=== PATIENT | female | born 1980 | race African-American/Black ===

== ENCOUNTER 2022-02-17 11:25 | Emergency (ER) | payer OTHER ==
[~2022-02-17] VITALS: Ht 175.3 cm; Wt 195.0 kg
[2022-02-17 12:03] VITALS: BP 117/81
== END 2022-02-17 12:48 | disposition home or self-care (01) ==
LOC: ER 11:28
DX: U07.1 COVID-19 (principal); B34.9 Viral infection, unspecified; Z88.0 Allergy status to penicillin
CPT/HCPCS: 36415; 87426; 87804

== ENCOUNTER 2023-09-28 01:09 | Emergency (ER) | payer OTHER ==
[~2023-09-28] VITALS: Ht 175.3 cm; Wt 190.0 kg
[2023-09-28 01:37] LABS: Basophils # (auto) 0 10 ^3/uL (0-0.2); Basophils % (auto) 0.2 % (0.0-2.0); Eosinophils # (auto) 0.1 10 ^3/uL (0-0.8); Eosinophils % (auto) 0.7 % (0.0-7.0); Hematocrit 36.3 % (36.0-46.0); Hemoglobin 11.9 g/dL (12.2-16.2); Lymphocytes % (auto) 26.6 % (10.0-50.0); Mean Corpuscular Hemoglobin 27.9 pg (28.0-32.0); Mean Corpuscular Hgb Conc. 32.7 g/dL (32.0-36.0); Mean Corpuscular Volume 85.5 fL (80.0-100.0); Monocytes # (auto) 0.3 10 ^3/uL (0-1.3); Neutrophils # (auto) 5.1 10 ^3/uL (1.6-8.6); Neutrophils % (auto) 68.5 % (37.0-80.0); Red Blood Cells 4.24 10^6/uL (4.0-5.20); Red Cell Distribution Width 15.2 % (11.8-14.3); White Blood Cell 7.4 10^3/uL (4.4-10.8)
[2023-09-28 01:38] VITALS: TEMP 98.7
[2023-09-28] MEDS: KETOROLAC TROMETH 60MG/2ML VIAL IM ONE (01:44)
[2023-09-28 01:56] LABS: Alanine Aminotransferase 15 U/L (7-40); Alkaline Phosphatase 75 U/L (46-116); Anion Gap 7 (5-15); BUN/Creatinine Ratio 15.7 (10.0-20.0); Blood Urea Nitrogen 13 mg/dL (9-23); Calcium 9.1 mg/dL (8.7-10.4); Carbon Dioxide 25 mmol/L (20-30); Chloride 106 mmol/L (98-107); Glucose 127 mg/dL (74-106); Potassium 3.9 mmol/L (3.5-5.1); Sodium 138 mmol/L (136-145)
[2023-09-28 01:57] LABS: Aspartate Aminotransferase < 8 U/L (13-40); Bilirubin, Total 0.4 mg/dL (0.2-1.0); Total Protein 7.4 g/dL (5.7-8.2)
[2023-09-28 01:58] VITALS: PULSE 72; RESP 25; O2SAT 98
[2023-09-28 04:00] VITALS: BP 113/75; PULSE 89; RESP 17; O2SAT 96
[2023-09-28 04:14] LABS: Urine Blood 3+ /uL (Negative); Urine Clarity Turbid (Clear); Urine Color Light-Brown (Yellow); Urine Protein, UAD TRACE (Negative); Urine Urobilinogen Normal (Negative)
[2023-09-28] MEDS ORDERED: NAP500T GT (04:51)
== END 2023-09-28 05:02 | disposition home or self-care (01) ==
LOC: ER 01:09 → EDBD 01:09 → EDUNIT# 01:09 → ER 05:02
DX: R11.2 Nausea with vomiting, unspecified (principal); N92.0 Excessive and frequent menstruation with regular cycle; N94.6 Dysmenorrhea, unspecified; Z88.0 Allergy status to penicillin
CPT/HCPCS: 36415; 76856; 80053; 81003; 82962; 85025; 96372; 99285; J1885

== ENCOUNTER 2024-09-04 05:59 | Emergency (ER) | payer SELFPAY ==
[~2024-09-04] VITALS: Ht 175.3 cm; Wt 150.0 kg
[~2024-09-04 05:59] MED LIST: NAP500T GT
--- NOTE | 2024-09-04 07:01 | ED.PDOC ---
GI ASSESSMENT HPI Comments A 43 year-old female, with a PMHX of Gallbladder Disease, presents to the ED via EMS with a chief complaint of epigastric abdominal pain with associated nausea after eating steak at 0000 today. Patient has no further complaints at this time and otherwise denies emesis, dysuria, hematuria, fever, chills, or aches. Chief Complaint: Abdominal Pain Time Seen by MD: 06:45 Reviewed Notes: Nurses Notes, Medications, Allergies Allergies: Coded Allergies: Penicillins (Verified Allergy, Severe, RASH, 02/17/22) Home Meds Active Scripts Naproxen (NAPROSYN TABLET) 500 Mg Tb, 500 MG GT BID for 10 Days, #20 TAB Prov:KENIA DAVID MD 09/28/23 Information Source: Patient Mode of Arrival: EMS Duration: Since onset Severity: Moderate Pain Location: Epigastric Associated sign and symptoms: Nausea, Abdominal Pain Past Medical History Past Medical History (Other): Gallbladder Disease Surgical History: Denies all surgeries COMBAT ENGINEER History: No Pertinent COMBAT ENGINEER History Family History Family History: Reviewed,noncontributory to illness Social History Smoker: Non-Smoker Alcohol: Denies ETOH Use Drugs: Denies Drug Use Lives In: Home Constitutional: denies: chills, diaphoresis, fatigue, fever, malaise, sweats, weakness, others EENTM: denies: blurred vision, double vision, ear bleeding, ear discharge, ear drainage, ear pain, ear ringing, eye pain, eye redness, hearing loss, mouth pain, mouth swelling, nasal discharge, nose bleeding, nose congestion, nose pain, photophobia, tearing, throat pain, throat swelling, voice changes, others Respiratory: denies: cough, hemoptysis, orthopnea, SOB at rest, shortness of breath, SOB with excertion, stridor, wheezing, others Cardiovascular: denies: chest pain, dizzy spells, diaphoresis, Dyspnea on exertion, edema, irregular heart beat, left arm pain, lightheadedness, palpitations, PND, syncope, others Gastrointestinal: reports: abdominal pain, nausea; denies: abdomen distended, blood streaked bowels, constipated, diarrhea, dysphagia, difficulty swallowing, hematemesis, melena, poor appetite, poor fluid intake, rectal bleeding, rectal pain, vomiting, others Genitourinary: denies: abnormal vagina bleeding, burning, dyspareunia, dysuria, flank pain, frequency, hematuria, incontinence, pain, , vagina discharge, urgency, others Neurological: denies: dizziness, fainting, headache, left sided numbness, left sided weakness, numbness, paresthesia, pre-existing deficit, right sided numbness, right sided weakness, seizure, speech problems, tingling, tremors, weakness, others Musculoskeletal: denies: back pain, gout, joint pain, joint swelling, muscle pain, muscle stiffness, neck pain, others Integumetry: denies: bruises, change in color, change in hair/nails, dryness, laceration, lesions, lumps, rash, wounds, others Allergic/Immunocompromised: denies: Difficulty Healing, Frequent Infections, Hives, Itching, others Hematologic/Lymphatic: denies: anemia, blood clots, easy bleeding, easy bruising, swollen glands, others Endocrine: denies: excessive hunger, excessive sweating, excessive thirst, excessive urination, flushing, intolerance to cold, intolerance to heat, unexplained weight gain, unexplained weight loss, others Psychiatric: denies: anxiety, bipolar disorder, depression, hopeless, panic disorder, schizophrenia, sleepless, suicidal, others All Other Systems: Reviewed and Negative Physical Exam General Appearance: Moderate Distress, Obese HEENT: Normal ENT Inspection, Pharynx Normal, TMs Normal Neck: Full Range of Motion, Non-Tender, Normal, Normal Inspection Respiratory: Chest Non-Tender, Lungs Clear, No Accessory Muscle Use, No Respiratory Distress, Normal Breath Sounds Cardiovascular: No Edema, No JVD, No Murmur, No Gallop, Normal Peripheral Pulses, Regular Rate/Rhythm Breast Exam: Deferred Gastrointestinal: Diffuse, Epigastric, No Organomegaly, No Pulsatile Mass, Normal Bowel Sounds, RUQ, Tenderness, Other (morbid obesity) Genitalia: Deferred Pelvic: Deferred Rectal: Deferred Extremities: No calf tenderness, Normal capillary refill, Normal inspection, Normal range of motion, Non-tender, No pedal edema Neurologic: Alert, web software engineer II-XII nml as Tested, No Motor Deficits, Normal Affect, Normal Mood, No Sensory Deficits Cerebellar Function: Normal Reflexes: NOT DONE Skin: Dry, Normal Color, Warm Peripheral Pulses: 1+ carotid (R), 1+ carotid (L) Lymphatic: No Adenopathy Was a procedure done? Was a procedure done?: No GI differential Dx Differential Diagnosis: Cholecystitis, Gastroenteritis, UTI, Urolithiasis, Dehydration, Diabetes/ DKA, Electrolyte Imbalance, Bacterial, Parasitic, Viral, Stress Ulcer, Kidney Stone X-Ray, Labs, Meds, VS Vital Signs Date Time Temp Pulse Resp B/P (MAP) Pulse Ox O2 Delivery O2 Flow Rate FiO2 09/04/24 08:43 64 18 127/88 09/04/24 07:38 65 20 100 Room Air* 0 21 09/04/24 07:38 98.8 65 20 141/83 (102) 100 98.8 09/04/24 07:36 65 20 141/83 09/04/24 06:09 97.8 84 21 124/86 (99) 100 97.8 Lab Test 09/04/24 07:08 09/04/24 07:07 Range/Units Urine Color Light-yellow Yellow Urine Clarity Clear Clear Urine pH 8.0 5.0-9.0 Urine Specific [place] 1.033 1.001-1.035 Urine Protein Trace H Negative Urine Ketones Negative Negative Urine Blood Trace H Negative /uL Urine Nitrite Negative Negative Urine Bilirubin Negative Negative Urine Urobilinogen Normal Negative mg/dL Urine Leukocyte Esterase Negative Negative /uL Urine RBC 4 0 - 4 /hpf Urine Microscopic WBC 4 0-5 /HPF Urine Squamous Epithelial Cells Few <5 /hpf Urine Bacteria None seen None Seen /hpf Urine Mucus Few None Seen Urine Glucose Normal Normal mg/dL White Blood Count 6.7 4.4-10.8 10^3/uL Red Blood Count 4.22 4.0-5.20 10^6/uL Hemoglobin 12.1 L 12.2-16.2 g/dL Hematocrit 36.7 36.0-46.0 % Mean Corpuscular Volume 87.0 80.0-100.0 fL Mean Corpuscular Hemoglobin 28.6 28.0-32.0 pg Mean Corpuscular Hemoglobin Concent 32.9 32.0-36.0 g/dL Red Cell Distribution Width 15.9 H 11.8-14.3 % Platelet Count 256 140-450 10^3/uL Mean Platelet Volume 9.5 6.9-10.8 fL Neutrophils (%) (Auto) 62.2 37.0-80.0 % Lymphocytes (%) (Auto) 30.1 10.0-50.0 % Monocytes (%) (Auto) 6.4 0.0-12.0 % Eosinophils (%) (Auto) 0.9 0.0-7.0 % Basophils (%) (Auto) 0.4 0.0-2.0 % Neutrophils # (Auto) 4.2 1.6-8.6 10 ^3/uL Lymphocytes # (Auto) 2.0 0.4-5.4 10 ^3/uL Monocytes # (Auto) 0.4 0-1.3 10 ^3/uL Eosinophils # (Auto) 0.1 0-0.8 10 ^3/uL Basophils # (Auto) 0 0-0.2 10 ^3/uL Nucleated Red Blood Cells 0.1 % Sodium Level 139 136-145 mmol/L Potassium Level 3.6 3.5-5.1 mmol/L Chloride Level 105 98-107 mmol/L Carbon Dioxide Level 24 20-31 mmol/L Anion Gap 10 5-15 Blood Urea Nitrogen 23 9-23 mg/dL Creatinine 0.76 0.550-1.02 mg/dL Glomerular Filtration Rate Calc 98 >90 mL/min BUN/Creatinine Ratio 30.3 H 10.0-20.0 Serum Glucose 113 H 74-106 mg/dL Calcium Level 9.9 8.7-10.4 mg/dL Magnesium Level 2.1 1.6-2.6 mg/dL Total Bilirubin 0.4 0.2-1.0 mg/dL Aspartate Amino Transferase (AST) 20 13-40 U/L Alanine Aminotransferase (ALT) 29 7-40 U/L Alkaline Phosphatase 59 46-116 U/L Total Protein 7.4 5.7-8.2 g/dL Albumin 4.4 3.2-4.8 g/dL Lipase 31 12-53 U/L Current Medications Medications (Trade) Dose Ordered Sig/Millie Route Start Time Stop Time Status Last Admin Metoclopramide HCl (Reglan Injection) 10 mg ONCE ONCE IV 09/04/24 07:00 09/04/24 07:01 DC 09/04/24 07:36 Morphine Sulfate 3 mg ONCE ONCE IV 09/04/24 07:00 09/04/24 07:01 DC 09/04/24 07:36 Sodium Chloride 500 ml @ 500 mls/hr Q1H ONCE IVB 09/04/24 07:00 09/04/24 07:59 DC 09/04/24 07:10 [facility] [id number] [place] [id number] Ph: [phone] DIAGNOSTIC IMAGING Diagnostic Imaging Report : [id number] Signed PATIENT: SONIA DALE ACCT: [id number] UNIT: [id number] : 1980 LOC: ER ROOM / BED: / AGE / SEX: 43 / F ADM STATUS: REG ER SERVICE [id number] ORDERING PHYSICIAN: JACINDA JACOBO MD PROCEDURE(s): GBUS - GALLBLADDER REASON: gb ORDER NUMBER(s): [id number], ACCESSION NUMBER(s): [id number] Technique: Real-time ultrasound imaging of the abdomen was performed with grayscale and color Doppler. Indication: gb Comparison: None Findings: Liver measures 18.8 cm. It is increased in echogenicity and echotexture without focal mass. Portal vein is normal in caliber and demonstrates normal hepatopetal flow. Gallbladder demonstrates cholelithiasis. There is no pericholecystic fluid. The wall thickness is normal. The common bile duct measures 5 mm. No intrahepatic biliary ductal dilatation. The right kidney measures 10.3 cm. There is no hydronephrosis or sonographic evidence of nephrolithiasis. The visualized portion of the pancreas is unremarkable. The visualized portion of the IVC is unremarkable. Impression: Cholelithiasis Hepatomegaly Echogenic liver which can be seen with hepatic steatosis, cirrhosis. X-Ray, Labs, Meds, VS Comment COURSE IN THE EMERGENCY DEPARTMENT EVENTFUL PATIENT CAME IN WITH A SEVERE PAIN TO THE RIGHT UPPER QUADRANT AFTER EATING STEAK YESTERDAY CBC NORMAL CMP NEGATIVE LIPASE 31 MAGNESIUM 2.1 URINE NEGATIVE GALLBLADDER ULTRASOUND SHOWS BILIARY COLICS CIRRHOSIS HEPATIC STEATOSIS PATIENT WILL BE HYDRATED MEDICATED AND OBSERVED Observed after observation patient is feeling better and will be discharged home to follow up with the PCP in his surgeon Images Reviewed?: Images reviewed and evaluated by me Time of 1ST Reevaluation: 07:15 Reevaluation 1ST: Unchanged Patient Education/Counseling: Diagnosis, Treatment, Prognosis, Need For Follow Up Family Education/Counseling: Diagnosis, Treatment, Prognosis, Need For Follow Up, No Family Present Medical Screening: No EMC Exist At This Time SEPSIS Sepsis Screen Date sepsis recognized/suspect: Sep 04, 2024 Time Sepsis recognized/suspect: 06 Recent Procedure: No On Antibiotic Therapy: No Respiratory Rate >20: No Heart Rate >90: No Temp<36 C (96.8 F) or >38.3 C: No SBP <90 or MAP <65 mmHG: No New Acute Mental Status Change: No Is the patient on CPAP, BIPAP,: No Physician Orders Heplock Iv (09/04/24 06:49) Blood Pressure (09/04/24 06:49) Gallbladder (09/04/24 06:49) Vital Signs Date Time Temp Pulse Resp B/P (MAP) Pulse Ox O2 Delivery O2 Flow Rate FiO2 09/04/24 08:43 64 18 127/88 09/04/24 07:38 65 20 100 Room Air* 0 21 09/04/24 07:38 98.8 65 20 141/83 (102) 100 98.8 09/04/24 07:36 65 20 141/83 09/04/24 06:09 97.8 84 21 124/86 (99) 100 97.8 Laboratory Tests Test 09/04/24 07:07 White Blood Count 6.7 10^3/uL (4.4-10.8) Medications Medications Dose Ordered Sig/Millie Route Start Time Stop Time Status Last Admin Dose Admin Metoclopramide HCl 10 mg ONCE ONCE IV 09/04/24 07:00 09/04/24 07:01 DC 09/04/24 07:36 Morphine Sulfate 3 mg ONCE ONCE IV 09/04/24 07:00 09/04/24 07:01 DC 09/04/24 07:36 Sodium Chloride 500 ml @ 500 mls/hr Q1H ONCE IVB 09/04/24 07:00 09/04/24 07:59 DC 09/04/24 07:10 Departure 1 Departure Time of Disposition: 10:39 Impression: Primary Impression: Biliary colic symptom Additional Impressions: Cirrhosis Hepatic steatosis Gallstones Disposition: 01 HOME / SELF CARE / HOMELESS Condition: Stable Additional Instructions: You need to follow up with your PCP for referral to a surgeon e-Prescriptions Tramadol Hcl (Tramadol Hcl) 50 Mg Tab 50 MG PO BID for 10 Days, #20 TAB Prov: JACINDA JACOBO MD 09/04/24 Metoclopramide Hcl (Reglan) 10 Mg Tab 10 MG PO BID PRN for 10 Days, #20 TAB Prov: JACINDA JACOBO MD 09/04/24 Discharged With: Self Critical Care Note Critical Care Time?: No Stability Stability form required: No Heart Score Heart Score: Heart Score Response (Comments) Value History N/A 0 EKG N/A 0 Age 45-64 1 Risk Factors 1 or 2 risk factors 1 Troponin N/A 0 Total 2 I personally scribed for JACINDA JACOBO MD ([email or web address]) on 09/04/24 at 07:01. Electronically submitted by Nunu Holliday ([email or web address]). I personally scribed for JACINDA JACOBO MD (CHRISTOPHERZINGI) on 09/04/24 at 07:02. Electronically submitted by Nunu Holliday (GAY). I personally scribed for JACINDA JACOBO MD (CHRISTOPHERZINGI) on 09/04/24 at 07:03. Electronically submitted by Nunu Holliday ([email or web address]). I personally scribed for JACINDA JACOBO MD (CHRISTOPHERZINGI) on 09/04/24 at 07:05. Electronically submitted by Nunu Holliday ([email or web address]). I personally scribed for JACINDA JACOBO MD (CHRISTOPHERZINGI) on 09/04/24 at 07:05. Electronically submitted by Nunu Holliday ([employer]). I personally scribed for JACINDA JACOBO MD (CHRISTOPHERZINGI) on 09/04/24 at 07:05. Electronically submitted by Nunu Holliday (GAY). I personally scribed for JACINDA JACOBO MD (CHRISTOPHERZINGI) on 09/04/24 at 07:14. Electronically submitted by Nunu Holliday ([employer]). I personally scribed for JACINDA JACOBO MD (CHRISTOPHERZINGI) on 09/04/24 at 07:59. Electronically submitted by Nunu Holliday ([employer]). I personally scribed for JACINDA JACOBO MD (CHRISTOPHERZINGI) on 09/04/24 at 08:03. Electronically submitted by Nunu Holliday ([employer]). I personally scribed for JACINDA JACOBO MD ([email or web address]) on 09/04/24 at 08:05. Electronically submitted by Nunu Holliday ([facility]). JACINDA JACOBO MD Sep 04, 2024 07:01
[2024-09-04] MEDS: SODIUM CHLORIDE 0.9% 500 ML IVB ONE (07:10)
[2024-09-04] MEDS: MORPHINE SULFATE 4 MG/ML SYR/VIAL IV ONE (07:36)
[2024-09-04] MEDS: METOCLOPRAMIDE HCL 5MG/ml INJ 2ml VIAL IV ONE (07:36)
[2024-09-04 07:38] VITALS: PULSE 65; RESP 20; O2SAT 100
--- NOTE | 2024-09-04 07:57 | DVH ---
Technique: Real-time ultrasound imaging of the abdomen was performed with grayscale and color Doppler . Indication: gb Comparison: None Findings: Liver measures 18.8 cm. It is increased in echogenicity and echotexture without focal mass. Portal v ein is normal in caliber and demonstrates normal hepatopetal flow. Gallbladder demonstrates cholelithiasis. There is no pericholecystic fluid. The wall thickness is nor mal. The common bile duct measures 5 mm. No intrahepatic biliary ductal dilatation. The right kidney measures 10.3 cm. There is no hydronephrosis or sonographic evidence of nephrolithia sis. The visualized portion of the pancreas is unremarkable. The visualized portion of the IVC is unremarkable. Impression: Cholelithiasis Hepatomegaly Echogenic liver which can be seen with hepatic steatosis, cirrhosis.
[2024-09-04 08:07] LABS: Hematocrit 36.7 % (36.0-46.0); Hemoglobin 12.1 g/dL (12.2-16.2); Mean Corpuscular Hemoglobin 28.6 pg (28.0-32.0); Mean Corpuscular Volume 87.0 fL (80.0-100.0); Nucleated Red Blood Cells % 0.1 %
[2024-09-04 08:18] LABS: Alanine Aminotransferase 29 U/L (7-40); Albumin 4.4 g/dL (3.2-4.8); Alkaline Phosphatase 59 U/L (46-116); Anion Gap 10 (5-15); BUN/Creatinine Ratio 30.3 (10.0-20.0); Calcium 9.9 mg/dL (8.7-10.4); Carbon Dioxide 24 mmol/L (20-31); Chloride 105 mmol/L (98-107); Magnesium 2.1 mg/dL (1.6-2.6); Potassium 3.6 mmol/L (3.5-5.1); Sodium 139 mmol/L (136-145); Total Protein 7.4 g/dL (5.7-8.2)
[2024-09-04 08:19] LABS: Bilirubin, Total 0.4 mg/dL (0.2-1.0)
[2024-09-04 08:20] LABS: Blood Urea Nitrogen 23 mg/dL (9-23); Glucose 113 mg/dL (74-106)
[2024-09-04 08:54] LABS: Lipase 31 U/L (12-53)
[2024-09-04 09:06] LABS: Urine Protein, UAD TRACE (Negative)
[2024-09-04] MEDS ORDERED: TRAM50TA2 PO (10:42)
[2024-09-04] MEDS ORDERED: METO-281 PO (10:42)
[2024-09-04 10:56] VITALS: BP 148/86; PULSE 70; RESP 18; TEMP 98.6; O2SAT 98
== END 2024-09-04 10:57 | disposition home or self-care (01) ==
LOC: EDBD 05:59 → ER 05:59
DX: K80.70 Calculus of gallbladder and bile duct without cholecystitis without obstruction (principal); K74.60 Unspecified cirrhosis of liver; K76.0 Fatty (change of) liver, not elsewhere classified; Z88.0 Allergy status to penicillin; Z79.899 Other long term (current) drug therapy
CPT/HCPCS: 36415; 76705; 80053; 81001; 83690; 83735; 85025; 96361; 96374; 96375; 99285; J2270; J2765; J7040